=== PATIENT | male | born 1945 | race Caucasian/White ===

== ENCOUNTER 2017-08-31 20:57 | Emergency (ER) | payer MEDICARE, OTHER ==
[2014-09-09 07:37] VITALS: BMI 24.3
[2017-08-31 21:04] VITALS: BP 132/81; PULSE 80; RESP 16; TEMP 97.1; O2SAT 100
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
== END 2017-08-31 22:00 ==
LOC: H.ER 20:57
DX: Z02.89 Encounter for other administrative examinations (principal); I10 Essential (primary) hypertension; Z95.1 Presence of aortocoronary bypass graft; Z96.651 Presence of right artificial knee joint; I25.10 Atherosclerotic heart disease of native coronary artery without angina pectoris